=== PATIENT | male | born 1995 | race African-American/Black ===

== ENCOUNTER 2018-01-16 14:33 | Emergency (ER) | payer OTHER ==
[2018-01-16 14:45] LABS: BASOPHIL (%) 0.3 % (0-1); EOSINOPHIL COUNT 0.1 K/uL (0-0.3); HEMATOCRIT 43.2 % (38.0-50.0); HEMOGLOBIN 15.3 G/DL (12.5-16.6); IMMATURE GRANULOCYTE (%) 0.3 % (0.0-0.7); LYMPHOCYTE (%) 18.3 % (15-42); LYMPHOCYTE COUNT 1.7 K/uL (1.0-2.8); MCH 28.7 PG (29.0-34.0); MCHC 35.4 G/DL (30.0-36.0); MCV 80.9 FL (86-99); MONOCYTE (%) 6.3 % (3-12); MONOCYTE COUNT 0.6 K/uL (0-0.8); NEUTROPHIL (%) 73.8 % (45-76); NEUTROPHIL COUNT 6.7 K/uL (1.8-6.4); PLATELET COUNT 260 K/uL (156-360); RBC DIS.WIDTH-CV 12.3 % (11.8-14.6); RBC DIS.WIDTH-SD 35.5 % (39-53); RED BLOOD COUNT 5.34 M/uL (4.00-5.50); WHITE BLOOD COUNT 9.1 K/uL (4.1-10.2)
[2018-01-16 14:57] LABS: AMYLASE 62 IU/L (1-118); CHLORIDE 105 mEq/L (99-109); POTASSIUM 3.6 mEq/L (3.7-5.4); SODIUM 139 mEq/L (136-147)
[2018-01-16 14:59] LABS: GLUCOSE 110 mg/dL (70-99)
[2018-01-16 15:02] LABS: CREATININE 1.2 mg/dL (0.6-1.3); SERUM ETHYL ALCOHOL < 10 mg/dL
[2018-01-16 15:03] LABS: UREA NITROGEN (BUN) 13 mg/dL (9-23)
[2018-01-16 15:05] LABS: LIPASE 12 U/L (1.0-51.0)
[2018-01-16 15:06] LABS: GFR ESTIMATE (CALCULATED) > 59 mL/min/ (58.99-99999)
[2018-01-16] MEDS ORDERED: IBUPROFEN600 MG PO (16:35)
[2018-01-16 16:53] LABS: APPEARANCE CLEAR ((CLEAR)); BILIRUBIN NEGATIVE; BLOOD MODERATE; COLOR YELLOW ((YELLOW)); GLUCOSE (STRIP) NEGATIVE; KETONES NEGATIVE; LEUKOCYTES NEGATIVE; NITRITE NEGATIVE; PROTEIN (STRIP) NEGATIVE; SPECIFIC GRAVITY 1.057 (1.000-1.030); UROBILINOGEN 0.2 MG/DL (0.2-1.0)
[2018-01-16 17:05] LABS: BACTERIA NONE SEEN /HPF; EPITHELIAL CELLS RARE /HPF; MUCUS TRACE /LPF; RED BLOOD CELLS 40-50 /HPF (0-5); UCUL ADDED? NO; WHITE BLOOD CELLS 0-5 /HPF (0-5)
[2018-01-16 17:24] LABS: AMPHETAMINE NEGATIVE (500 ng/mL); BARBITURATES NEGATIVE (200 ng/mL); BENZODIAZEPINES NEGATIVE (150 ng/mL); BUPRENORPHINE NEGATIVE (10 ng/mL); COCAINE NEGATIVE (150 ng/mL); METHADONE NEGATIVE (200 ng/mL); METHAMPHETAMINE NEGATIVE (500 ng/mL); OPIATES (MORPHINE) NEGATIVE (100 ng/mL); OXYCODONE NEGATIVE (100 ng/mL); PHENCYCLIDINE NEGATIVE (25 ng/mL); PROPOXYPHENE NEGATIVE (300 ng/mL); THC CANNABINOIDS NEGATIVE (50 ng/mL); TRICYCLIC ANTIDEPRESSANTS NEGATIVE (300 ng/mL)
== END 2018-01-16 18:42 | disposition home or self-care (01) ==
LOC: TRA 14:33
PROVIDERS: Emergency Medicine
DX: S60.511A Abrasion of right hand, initial encounter (principal); S80.211A Abrasion, right knee, initial encounter; S30.1XXA Contusion of abdominal wall, initial encounter; V29.9XXA Motorcycle rider (driver) (passenger) injured in unspecified traffic accident, initial encounter; Y92.410 Unspecified street and highway as the place of occurrence of the external cause; K21.9 Gastro-esophageal reflux disease without esophagitis; J45.909 Unspecified asthma, uncomplicated; Z86.79 Personal history of other diseases of the circulatory system
CPT/HCPCS: 70450; 71045; 71260; 72125; 72129; 72132; 72170; 74177; 80048; 81003; 82150; 83690; 85025; 86850; 86900; 86901; 99281; 99285; G0480; J2405